=== PATIENT | female | born 1965 | race Hispanic/Latino ===

== ENCOUNTER 2022-05-31 07:32 | Inpatient (IN) | payer OTHER ==
[~2022-05-31] VITALS: Ht 172.7 cm; Wt 94.2 kg
[~2022-05-31 07:32] MED LIST: ACET-2079 PO
[2022-05-31 08:19] LABS: BASOPHILS % (AUTO) 0.3 % (0.0-5.0); EOSINOPHILS % (AUTO) 0.7 % (0.0-8.0); HEMATOCRIT 40.4 % (36-48); LYMPHOCYTES % (AUTO) 19.8 % (21.0-51.0); MEAN CORPUSCULAR HEMOGLOBIN 28.7 pg (27.0-33.0); MEAN CORPUSCULAR HGB CONC 33.2 g/dL (32.0-36.0); MEAN CORPUSCULAR VOLUME 86.5 fL (79-99); MONOCYTES % (AUTO) 8.7 % (3.0-13.0); NEUTROPHILS % (AUTO) 70.3 % (40.0-77.0); PLATELET COUNT (AUTO) 257 K/uL (130-400); RED BLOOD CELL COUNT(AUTO) 4.67 MIL/uL (4.00-5.50); RED CELL DISTRIBUTION WIDTH 13.2 % (11.0-15.5); WHITE BLOOD COUNT (AUTO) 10.7 K/uL (4.8-10.8)
[2022-05-31] MEDS ORDERED: 0.9%NACL 1000ML 1,000 ML IV ONE ×2 (08:30→11:30)
[2022-05-31] MEDS ORDERED: KETOROLAC 30MG VIAL (30MG/ML) IVP ONE (08:30)
[2022-05-31] MEDS ORDERED: ONDANSETRON 4MG INJ IVP ONE (08:30)
[2022-05-31 08:32] LABS: APPEARANCE,URINE CLEAR (CLEAR); BILIRUBIN,URINE NEGATIVE (NEGATIVE); COLOR,URINE YELLOW (YELLOW); GLUCOSE, URINE (UA) NEGATIVE (NEGATIVE); KETONES,URINE NEGATIVE (NEGATIVE); LEUKOCYTE ESTERASE ,URINE SMALL (NEGATIVE); NITRATE,URINE NEGATIVE (NEGATIVE); OCCULT BLOOD,URINE TRACE-INTACT (NEGATIVE); PH,URINE 6.5 (5.0-8.0); PROTEIN,URINE NEGATIVE (NEGATIVE); UROBILINOGEN,URINE 0.2 mg/dL (0.2-1.0)
[2022-05-31 09:04] LABS: BACTERIA,URINE Rare /HPF (None Seen); RBC,URINE None Seen /HPF (0-1)
[2022-05-31 09:19] LABS: ALBUMIN 3.7 g/dL (3.5-5.0); TOTAL PROTEIN, SERUM 8.2 g/dL (6.0-8.3)
[2022-05-31] MEDS ORDERED: ZOSYN 3.375GM +NS 50ML IV SCH (10:00)
[2022-05-31 11:34] LABS: HEMOGLOBIN A1C 5.8 % (4.0-6.0)
[2022-05-31 11:53] LABS: INR 0.94 (0.85-1.15); PROTHROMBIN TIME 10.3 SEC (9.6-11.6)
[2022-05-31 11:55] LABS: PARTIAL THROMBOPLASTIN TIME 27.5 SEC (26.3-35.5)
[2022-05-31] MEDS ORDERED: MORPHINE 2 MG SYG IVP PRN (12:00)
[2022-05-31] MEDS: HYDROMORPHONE 1 MG INJ IVP PRN ×2 (15:47→23:45)
[2022-05-31] MEDS ORDERED: LOSA50TA64 PO (15:53)
[2022-05-31] MEDS: ZOSYN 3.375GM +NS 50ML IV SCH ×2 (17:15→23:40)
[2022-05-31] MEDS: ONDANSETRON 4MG INJ IVP PRN (18:02)
[2022-05-31] MEDS: KETOROLAC 15MG/ML VIAL (15MG/ML) IV PRN (18:03)
[2022-05-31 20:05] VITALS: BP 130/73
[2022-05-31] MEDS: FAMOTIDINE 20MG VIAL IV SCH (20:41)
[2022-05-31 23:45] VITALS: BP 146/78
[2022-06-01] MEDS: ONDANSETRON 4MG INJ IVP PRN ×2 (01:46→16:56)
[2022-06-01] MEDS: KETOROLAC 15MG/ML VIAL (15MG/ML) IV PRN (01:46)
[2022-06-01 03:54] VITALS: BP 134/83
[2022-06-01] MEDS ORDERED: ACETAMINOPHEN 650 MG SUPPOSITORY RC ONE ×2 (04:08→04:30)
[2022-06-01] MEDS: 0.9%NACL 1000ML 1,000 ML IV SCH ×3 (04:15→20:47)
[2022-06-01 04:49] LABS: BASOPHILS % (AUTO) 0.3 % (0.0-5.0); EOSINOPHILS % (AUTO) 0.1 % (0.0-8.0); HEMATOCRIT 42.6 % (36-48); LYMPHOCYTES % (AUTO) 11.4 % (21.0-51.0); MEAN CORPUSCULAR HEMOGLOBIN 29.1 pg (27.0-33.0); MEAN CORPUSCULAR HGB CONC 32.9 g/dL (32.0-36.0); MEAN CORPUSCULAR VOLUME 88.6 fL (79-99); MONOCYTES % (AUTO) 0.5 % (3.0-13.0); NEUTROPHILS % (AUTO) 87.3 % (40.0-77.0); PLATELET COUNT (AUTO) 212 K/uL (130-400); RED BLOOD CELL COUNT(AUTO) 4.81 MIL/uL (4.00-5.50); RED CELL DISTRIBUTION WIDTH 13.3 % (11.0-15.5)
[2022-06-01 05:11] LABS: ALBUMIN 3.5 g/dL (3.5-5.0); CREATININE 1.1 mg/dL (0.5-1.5); POTASSIUM 3.7 mmol/L (3.5-5.1); TOTAL PROTEIN, SERUM 8.2 g/dL (6.0-8.3)
[2022-06-01 07:00] VITALS: BP 106/63
[2022-06-01] MEDS: ZOSYN 3.375GM +NS 50ML IV SCH ×2 (08:52→16:29)
[2022-06-01] MEDS: FAMOTIDINE 20MG VIAL IV SCH ×2 (08:52→20:46)
[2022-06-01 11:05] VITALS: BP 120/65
[2022-06-01] MEDS: HYDROMORPHONE 1 MG INJ IVP PRN ×2 (14:34→22:46)
[2022-06-01 15:00] VITALS: BP 147/80
[2022-06-01 20:09] VITALS: BP 149/77
[2022-06-01 23:39] VITALS: BP 111/60
[2022-06-02] VITALS (18 sets, daily range): BP systolic 124–153; BP diastolic 65–83
[2022-06-02] MEDS: ZOSYN 3.375GM +NS 50ML IV SCH ×3 (00:08→17:00)
[2022-06-02] MEDS: 0.9%NACL 1000ML 1,000 ML IV SCH (00:46)
[2022-06-02] MEDS: HYDROMORPHONE 1 MG INJ IVP PRN (03:19)
[2022-06-02 05:39] LABS: HEMATOCRIT 36.9 % (36-48); MEAN CORPUSCULAR HEMOGLOBIN 28.8 pg (27.0-33.0); MEAN CORPUSCULAR HGB CONC 32.5 g/dL (32.0-36.0); MEAN CORPUSCULAR VOLUME 88.7 fL (79-99); RED BLOOD CELL COUNT(AUTO) 4.16 MIL/uL (4.00-5.50); RED CELL DISTRIBUTION WIDTH 13.4 % (11.0-15.5); WHITE BLOOD COUNT (AUTO) 20.4 K/uL (4.8-10.8)
[2022-06-02 06:03] LABS: ALBUMIN 2.6 g/dL (3.5-5.0); CREATININE 0.9 mg/dL (0.5-1.5); POTASSIUM 3.6 mmol/L (3.5-5.1); TOTAL PROTEIN, SERUM 6.9 g/dL (6.0-8.3)
[2022-06-02] MEDS: FAMOTIDINE 20MG VIAL IV SCH ×2 (08:47→21:00)
[2022-06-02] MEDS: KETOROLAC 15MG/ML VIAL (15MG/ML) IV PRN (13:26)
[2022-06-02] MEDS ORDERED: KCL 20 MEQ ERTAB PO ONE (14:30)
[2022-06-02] MEDS ORDERED: PROPOFOL 10 MG/ML 20ML VIAL IV ONE (17:01)
[2022-06-02] MEDS ORDERED: ROCURONIUM 10MG/1ML SYR 10 MG/ML ML ONE (17:01)
[2022-06-02] MEDS ORDERED: MIDAZOLAM HCL 1 MG/ML 2ML VIAL ONE (17:01)
[2022-06-02] MEDS ORDERED: FENTANYL CITRATE PF 50 MCG/1 ML 5ML AMP IV ONE (17:02)
[2022-06-02] MEDS ORDERED: ONDANSETRON 4MG INJ ONE (17:12)
[2022-06-02] MEDS ORDERED: KETOROLAC 30MG VIAL (30MG/ML) ONE ×3 (19:35→21:01)
[2022-06-02] MEDS ORDERED: MEPERIDINE-PF 25 MG/ML SYG ONE ×2 (19:42→21:01)
[2022-06-02] MEDS ORDERED: FENTANYL CITRATE PF 50 MCG/1 ML 2ML VIAL ONE ×2 (19:46→20:58)
[2022-06-02] MEDS ORDERED: CEFAZOLIN SODIUM 1 GM VIAL ONE (20:27)
[2022-06-02] MEDS ORDERED: GLYCOPYRROLATE 1 MG/5 ML SYRINGE ONE (20:52)
[2022-06-02] MEDS ORDERED: NEOSTIGMINE 5MG/5ML SYR IV ONE (20:52)
[2022-06-03] VITALS (9 sets, daily range): BP systolic 134–162; BP diastolic 73–83
[2022-06-03] MEDS: ZOSYN 3.375GM +NS 50ML IV SCH ×3 (00:19→16:11)
[2022-06-03] MEDS: KETOROLAC 15MG/ML VIAL (15MG/ML) IV PRN (02:32)
[2022-06-03] MEDS ORDERED: OXYCODONE/ACETAMIN 5/325MG TAB PO PRN (04:30)
[2022-06-03 05:53] LABS: BASOPHILS % (AUTO) 0.1 % (0.0-5.0); HEMATOCRIT 34.2 % (36-48); LYMPHOCYTES % (AUTO) 4.2 % (21.0-51.0); MEAN CORPUSCULAR VOLUME 87.7 fL (79-99); MONOCYTES % (AUTO) 4.6 % (3.0-13.0); NEUTROPHILS % (AUTO) 90.7 % (40.0-77.0); PLATELET COUNT (AUTO) 207 K/uL (130-400); RED CELL DISTRIBUTION WIDTH 13.2 % (11.0-15.5); WHITE BLOOD COUNT (AUTO) 16.1 K/uL (4.8-10.8)
[2022-06-03 06:03] LABS: CREATININE 0.9 mg/dL (0.5-1.5); POTASSIUM 3.9 mmol/L (3.5-5.1)
[2022-06-03] MEDS: FAMOTIDINE 20MG VIAL IV SCH ×2 (08:17→22:01)
[2022-06-04] VITALS: BP 134/68
[2022-06-04] MEDS: ZOSYN 3.375GM +NS 50ML IV SCH ×2 (01:08→09:38)
[2022-06-04 04:00] VITALS: BP 134/71
[2022-06-04 05:36] LABS: MEAN CORPUSCULAR HEMOGLOBIN 28.4 pg (27.0-33.0); MEAN CORPUSCULAR HGB CONC 33.5 g/dL (32.0-36.0); MEAN CORPUSCULAR VOLUME 84.8 fL (79-99); RED BLOOD CELL COUNT(AUTO) 4.01 MIL/uL (4.00-5.50); RED CELL DISTRIBUTION WIDTH 13.2 % (11.0-15.5); WHITE BLOOD COUNT (AUTO) 13.9 K/uL (4.8-10.8)
[2022-06-04 05:44] LABS: CREATININE 0.9 mg/dL (0.5-1.5); POTASSIUM 3.3 mmol/L (3.5-5.1)
[2022-06-04 08:00] VITALS: BP 143/86
[2022-06-04] MEDS: FAMOTIDINE 20MG VIAL IV SCH (09:38)
[2022-06-04 12:00] VITALS: BP 139/71
== END 2022-06-04 13:45 | disposition home or self-care (01) | DRG 419 ==
LOC: EDH 07:32 → EDHIP 07:33 → OBSVTOIN 07:33 → INTOOBSV 07:33 → 3CH 13:05
PROVIDERS: ADMIT Internal Medicine; ATTEND Internal Medicine
PROC: 8E0W4CZ Robotic Assisted Procedure of Trunk Region, Percutaneous Endoscopic Approach (ICD-10-PCS; 2022-06-02)
PROC: 0FT44ZZ Resection of Gallbladder, Percutaneous Endoscopic Approach (ICD-10-PCS; principal; 2022-06-02 19:12)
DX: K80.00 Calculus of gallbladder with acute cholecystitis without obstruction (principal); I10 Essential (primary) hypertension; Z68.34 Body mass index [BMI] 34.0-34.9, adult; Z20.822 Contact with and (suspected) exposure to COVID-19; K82.8 Other specified diseases of gallbladder; Z90.710 Acquired absence of both cervix and uterus; E66.9 Obesity, unspecified
CPT/HCPCS: 36415; 70450; 76705; 80048; 80053; 81001; 81025; 83036; 83690; 84484; 85025; 85027; 85610; 85730; 87040; 87635; 93005; G0378; J0690; J1170; J1885; J2175; J2250; J2405; J2543; J2704; J2710; J3010; J3490; J7030